=== PATIENT | female | born 1940 | race Caucasian/White ===

== ENCOUNTER 2017-01-07 08:57 | Outpatient (CLI) | payer MEDICARE, BC ==
[2017-01-07 09:41] LABS: Hemoglobin A1c 5.1 % (4.0-6.0)
[2017-01-07 09:46] LABS: Anion Gap 17 mmol/L (10-20); BUN (Urea Nitrogen) 21 mg/dL (9.8-20.1); Calc. Creatinine Clearance 0 mL/min (70-130); Carbon Dioxide 28 mmol/L (23-31); Chloride 98 mmol/L (98-107); Estimated GFR-MDRD 66; Potassium 4.2 mmol/L (3.5-5.1); Sodium 139 mmol/L (136-145)
[2017-01-07 09:47] LABS: ALT (SGPT) 21 U/L (0-55); AST (SGOT) 19 U/L (5-34); Albumin 4.7 g/dL (3.4-4.8); Alkaline Phosphatase 31 U/L (40-150); Bilirubin, Total 0.4 mg/dL (0.2-1.2); Cardiac Risk 3.6 (Less than 4.5); Cholesterol 144 mg/dL (< 200 Desired); Globulin 2.4 g/dL (2.4-3.5); Glucose 95 mg/dL (83-110); HDL Cholesterol 40 mg/dL (>60 Neg Risk); LDL Cholesterol, Calculated 62 mg/dL; Protein, Total 7.1 g/dL (5.8-8.1); Triglycerides 211 mg/dL (Less than 150)
[2017-01-08 15:39] LABS: Creatinine, Urine 146.94 mg/dL (47-110); Microalbumin Urine 9.5 mg/dL (0.5-50.0); Microalbumin/Creat Ratio 64.7 mg/g (Less than 30)
== END 2017-01-07 08:58 | disposition home or self-care (01) ==
LOC: MADLABBHPM 08:57
PROVIDERS: ATTEND Family Medicine
DX: E11.65 Type 2 diabetes mellitus with hyperglycemia (principal)
CPT/HCPCS: 36415; 80053; 80061; 82043; 83036

== ENCOUNTER 2017-01-20 16:06 | Outpatient (CLI) | payer MEDICARE, BC | END 2017-01-20 16:07 | disposition home or self-care (01) | LOC: MADLAB 16:06 | DX: M54.16 Radiculopathy, lumbar region (principal); M54.9 Dorsalgia, unspecified; M43.8X9 Other specified deforming dorsopathies, site unspecified; B99.9 Unspecified infectious disease; Z98.1 Arthrodesis status | CPT/HCPCS: 36415; 85652; 86140 ==

== ENCOUNTER 2017-03-06 17:29 | Outpatient (CLI) | payer MEDICARE, BC | END 2017-03-06 17:30 | disposition home or self-care (01) | LOC: MADLABBHPM 17:29 | PROVIDERS: ATTEND Family Medicine | DX: N39.0 Urinary tract infection, site not specified (principal) | CPT/HCPCS: 87077; 87086; 87186 ==

== ENCOUNTER 2017-04-14 11:27 | Outpatient (CLI) | payer MEDICARE, BC ==
[2017-04-14 12:25] LABS: ALT (SGPT) 20 U/L (8-55); AST (SGOT) 21 U/L (5-34); Albumin 4.3 g/dL (3.4-4.8); Alkaline Phosphatase 35 U/L (40-150); Anion Gap 19 mmol/L (10-20); BUN (Urea Nitrogen) 25 mg/dL (9.8-20.1); Bilirubin, Total 0.3 mg/dL (0.2-1.2); Calc. Creatinine Clearance 0 mL/min (70-130); Calcium 9.9 mg/dL (7.8-10.44); Carbon Dioxide 22 mmol/L (23-31); Chloride 99 mmol/L (98-107); Estimated GFR-MDRD 46; Globulin 2.5 g/dL (2.4-3.5); Glucose 126 mg/dL (83-110); Hemoglobin A1c 5.7 % (4.0-6.0); Protein, Total 6.8 g/dL (6.0-8.3); Sodium 135 mmol/L (136-145)
[2017-04-14 12:41] LABS: Free T4 (Free Thyroxine) 1.12 ng/dL (0.70-1.48); Thyroid Stimulating Hormone 2.64 uIU/mL (0.35-4.94)
[2017-04-14 17:33] LABS: Creatinine, Urine 77.64 mg/dL (47-110); Microalbumin Urine 9.5 mg/dL (0.5-50.0); Microalbumin/Creat Ratio 122.4 mg/g (Less than 30)
== END 2017-04-14 11:28 | disposition home or self-care (01) ==
LOC: MADLABBHPM 11:27
PROVIDERS: ATTEND Family Medicine
DX: E11.65 Type 2 diabetes mellitus with hyperglycemia (principal); R60.0 Localized edema
CPT/HCPCS: 36415; 80053; 82043; 83036; 84439; 84443

== ENCOUNTER 2017-04-19 11:39 | Outpatient (CLI) | payer MEDICARE, BC ==
[2017-04-21 17:39] LABS: Microalbumin-Urine 23.5 mg/dL; Microalbumin/24 Hr 15.28 mg/24 hr (Less than 30)
== END 2017-04-19 11:40 | disposition home or self-care (01) ==
LOC: MADLABBHPM 11:39
PROVIDERS: ATTEND Family Medicine
DX: E11.65 Type 2 diabetes mellitus with hyperglycemia (principal); R60.0 Localized edema; R80.9 Proteinuria, unspecified
CPT/HCPCS: 82043

== ENCOUNTER 2018-06-27 22:42 | Emergency (ER) | payer MEDICARE, BC ==
[~2018-06-27 22:42] MED LIST: Sodium Chloride 0.9% 1,000 ML BAG ONE
--- NOTE | 2018-06-27 23:20 | RAD ---
AP VIEW CHEST: 06/27/18 HISTORY: Weakness and fall. AP view chest is obtained on 06/27/18. COMPARISON: Comparison made to a previous exam from 02/05/07. AP view chest demonstrates a right shoulder arthroplasty. EKG leads seen over the chest. A moderate degree of pulmonary vascular congestion is seen. No evidence of effusions, pneumonia or pn eumothorax seen. IMPRESSION: 1. Pulmonary vascular congestion. 2. Cardiomegaly. 3. No other acute intrathoracic abnormality seen. POS: [facility]
[2018-06-27 23:49] LABS: #Basophils 0.1 thou/uL (0.0-0.2); #Eosinphils 0.3 thou/uL (0.0-0.7); #Lymphocytes 1.7 thou/uL (1.20-3.40); #Monocytes 0.5 thou/uL (0.11-0.59); #Neutrophils 3.5 thou/uL (1.40-6.50); %Basophils 1.2 % (0.0-1.0); %Eosinophils 4.6 % (0.0-10.0); %Lymphocytes 28.1 % (21.0-51.0); %Monocytes 8.2 % (0.0-10.0); %Neutrophils 57.9 % (42.0-75.0); Hemoglobin 11.4 g/dL (12.0-16.0); Mean Corpuscular HGB CONC 32.7 g/dL (32.0-36.0); Mean Corpuscular Hemoglobin 28.7 pg (27.0-31.0); Mean Corpuscular Volume 87.8 fL (78.0-98.0); Mean Platelet Volume 9.8 fL (7.4-10.4); Platelet Count 145 thou/uL (130-400); RBC Distribution Width 12.9 % (11.5-14.5); Red Blood Cell (RBC) Count 3.98 mill/uL (4.20-5.40); White Blood Cell (WBC) Count 6.1 thou/uL (4.8-10.8)
[2018-06-27 23:55] LABS: ALT (SGPT) 12 U/L (8-55); AST (SGOT) 16 U/L (5-34); Albumin 4.2 g/dL (3.4-4.8); Alkaline Phosphatase 46 U/L (40-150); Anion Gap 16 mmol/L (10-20); BUN (Urea Nitrogen) 32 mg/dL (9.8-20.1); Bilirubin, Total 0.3 mg/dL (0.2-1.2); CK (CPK) 96 U/L (29-168); Calc. Creatinine Clearance 0 mL/min (70-130); Calcium 9.6 mg/dL (7.8-10.44); Carbon Dioxide 28 mmol/L (23-31); Chloride 97 mmol/L (98-107); Estimated GFR-MDRD 35; Globulin 2.4 g/dL (2.4-3.5); Glucose 142 mg/dL (83-110); Potassium 4.6 mmol/L (3.5-5.1); Protein, Total 6.6 g/dL (6.0-8.3); Sodium 136 mmol/L (136-145)
[2018-06-28 00:03] LABS: CKMB 1.5 ng/mL (0-6.6); Troponin I Less than 0.010 ng/mL (< 0.028)
== END 2018-06-28 01:33 | disposition short-term general hospital (02) ==
LOC: MADERS 22:42
DX: R00.1 Bradycardia, unspecified (principal); R41.82 Altered mental status, unspecified; E11.9 Type 2 diabetes mellitus without complications; E78.5 Hyperlipidemia, unspecified; I10 Essential (primary) hypertension; K21.9 Gastro-esophageal reflux disease without esophagitis; M48.00 Spinal stenosis, site unspecified
CPT/HCPCS: 36415; 71045; 80053; 82550; 82553; 83880; 84443; 84484; 85025; 93005; 96360; J7050

== ENCOUNTER 2018-07-05 11:56 | Emergency (ER) | payer MEDICARE, BC | END 2018-07-05 13:09 | disposition home or self-care (01) | LOC: MADERS 11:56 | DX: E86.0 Dehydration (principal); E78.5 Hyperlipidemia, unspecified; I10 Essential (primary) hypertension; K21.9 Gastro-esophageal reflux disease without esophagitis; E11.9 Type 2 diabetes mellitus without complications; G47.00 Insomnia, unspecified; Z79.899 Other long term (current) drug therapy; Z79.82 Long term (current) use of aspirin | CPT/HCPCS: 99283 ==

== ENCOUNTER 2018-11-03 12:34 | Emergency (ER) | payer MEDICARE, BC ==
[2018-11-03 13:10] LABS: Bilirubin Small (Negative); Blood, Urine Moderate (Negative); Clarity Cloudy (Clear); Glucose, Urine (Dipstick) 100 mg/dL (Negative); Leukocyte Large (Negative); Nitrite Positive (Negative); Protein, Urine (Dipstick) > or equal to 300 mg/dL (Neg-Trace)
[2018-11-03 13:17] LABS: RBC/HPF 0-3 HPF (0-3)
[2018-11-03 13:18] LABS: Bacteria/HPF 3+ HPF (None Seen); Hyaline Casts/LPF 0-3 HYALINE CAST LPF (0-3 Hyaline)
== END 2018-11-03 13:35 | disposition home or self-care (01) ==
LOC: MADERS 12:34
DX: N39.0 Urinary tract infection, site not specified (principal); E78.5 Hyperlipidemia, unspecified; I10 Essential (primary) hypertension; K21.9 Gastro-esophageal reflux disease without esophagitis; E11.9 Type 2 diabetes mellitus without complications; G47.00 Insomnia, unspecified; Z79.899 Other long term (current) drug therapy; Z79.84 Long term (current) use of oral hypoglycemic drugs; Z79.82 Long term (current) use of aspirin
CPT/HCPCS: 81001; 87077; 87086; 87186; 99283

== ENCOUNTER 2021-02-16 17:19 | Outpatient (CLI) | payer MEDICARE, BC | END 2021-02-16 17:20 | disposition home or self-care (01) | LOC: MADRAD 17:19 | PROVIDERS: ATTEND Family Medicine | DX: R06.09 Other forms of dyspnea (principal); M47.814 Spondylosis without myelopathy or radiculopathy, thoracic region; M48.04 Spinal stenosis, thoracic region; Q25.46 Tortuous aortic arch; Z98.1 Arthrodesis status; Z96.611 Presence of right artificial shoulder joint | CPT/HCPCS: 71046 ==

== ENCOUNTER 2021-06-29 23:50 | Emergency (ER) | payer MEDICARE, BC ==
[2021-06-30] MEDS ORDERED: Fentanyl 100 MCG/2 ML VIAL ONE (01:01)
[2021-06-30 02:04] LABS: #Basophils 0.1 thou/uL (0.0-0.2); #Eosinphils 0.2 thou/uL (0.0-0.7); #Lymphocytes 1.1 thou/uL (1.20-3.40); #Monocytes 0.4 thou/uL (0.11-0.59); #Neutrophils 7.2 thou/uL (1.40-6.50); %Eosinophils 2.5 % (0.0-10.0); %Monocytes 4.3 % (0.0-10.0); %Neutrophils 80.3 % (42.0-75.0); Hemoglobin 12.7 g/dL (12.0-16.0); Mean Corpuscular HGB CONC 31.4 g/dL (32.0-36.0); Mean Corpuscular Hemoglobin 29.6 pg (27.0-31.0); Mean Corpuscular Volume 94.3 fL (78.0-98.0); Mean Platelet Volume 8.1 fL (7.4-10.4); Platelet Count 147 thou/uL (130-400); RBC Distribution Width 12.5 % (11.5-14.5); Red Blood Cell (RBC) Count 4.29 mill/uL (4.20-5.40); White Blood Cell (WBC) Count 8.9 thou/uL (4.8-10.8)
[2021-06-30 02:10] LABS: Bilirubin Negative (Negative); Blood, Urine Trace (Negative); Clarity Clear (Clear); Glucose, Urine (Dipstick) 500 mg/dL (Negative); Ketone, Urine Negative (Negative); Leukocyte Negative (Negative); Nitrite Negative (Negative); Protein, Urine (Dipstick) Negative (Neg-Trace); Specific Gravity, Urine 1.025 (1.005-1.030); Urobilinogen 0.2 mg/dL (Less than 2)
[2021-06-30 02:17] LABS: Bacteria/HPF None Seen HPF (None Seen); RBC/HPF 0-3 HPF (0-3); Renal Epithelial 0-3 HPF (None Seen); Squamous Epithelial 0-3 HPF (0-3); Transitional Epithelial 0-3 HPF (None Seen)
[2021-06-30 02:20] LABS: ALT (SGPT) 18 U/L (8-55); AST (SGOT) 16 U/L (5-34); Alkaline Phosphatase 70 U/L (40-110); Anion Gap 13 mmol/L (10-20); BUN (Urea Nitrogen) 27 mg/dL (9.8-20.1); Bilirubin, Total 0.4 mg/dL (0.2-1.2); Calc. Creatinine Clearance 0 mL/min (70-130); Calcium 9.2 mg/dL (7.8-10.44); Carbon Dioxide 28 mmol/L (23-31); Chloride 99 mmol/L (98-107); Globulin 2.1 g/dL (2.4-3.5); Glucose 121 mg/dL (83-110); Magnesium 1.6 mg/dL (1.6-2.6); Potassium 4.9 mmol/L (3.5-5.1); Protein, Total 6.1 g/dL (5.8-8.1); Sodium 135 mmol/L (136-145)
== END 2021-06-30 05:35 | disposition home or self-care (01) ==
LOC: MADERS 23:50
DX: R53.1 Weakness (principal); E78.5 Hyperlipidemia, unspecified; I10 Essential (primary) hypertension; K21.9 Gastro-esophageal reflux disease without esophagitis; M48.00 Spinal stenosis, site unspecified; E78.00 Pure hypercholesterolemia, unspecified; G93.41 Metabolic encephalopathy; E11.9 Type 2 diabetes mellitus without complications; K76.0 Fatty (change of) liver, not elsewhere classified; E83.52 Hypercalcemia; G47.00 Insomnia, unspecified; Z85.038 Personal history of other malignant neoplasm of large intestine; Z79.82 Long term (current) use of aspirin; Z79.899 Other long term (current) drug therapy
CPT/HCPCS: 71045; 80053; 81003; 81015; 83735; 84484; 85025; 93005; 96372; J3010

== ENCOUNTER 2021-08-07 03:02 | Emergency (ER) | payer MEDICARE, BC ==
[2021-08-07 04:05] LABS: Hemoglobin 7.4 g/dL (12.0-16.0); Mean Corpuscular HGB CONC 33.1 g/dL (32.0-36.0); Mean Corpuscular Hemoglobin 30.1 pg (27.0-31.0); Mean Corpuscular Volume 91.1 fL (78.0-98.0); Mean Platelet Volume 10.6 fL (7.4-10.4); Platelet Count 42 thou/uL (130-400); RBC Distribution Width 13.6 % (11.5-14.5); Red Blood Cell (RBC) Count 2.44 mill/uL (4.20-5.40)
[2021-08-07] MEDS ORDERED: Lactated Ringer's 1,000 ML ONE (04:15)
[2021-08-07] MEDS ORDERED: Sodium Chloride 0.9% 100 ML ONE (04:15)
[2021-08-07] MEDS ORDERED: Cefepime 2 GM VIAL ONE (04:15)
[2021-08-07] MEDS ORDERED: Sodium Chloride 0.9% 250 ML 500 ML ONE (04:18)
[2021-08-07 04:20] LABS: ALT (SGPT) 23 U/L (8-55); AST (SGOT) 16 U/L (5-34); Albumin 2.8 g/dL (3.4-4.8); Alkaline Phosphatase 54 U/L (40-110); Anion Gap 20 mmol/L (10-20); BUN (Urea Nitrogen) 57 mg/dL (9.8-20.1); Bilirubin, Total 0.5 mg/dL (0.2-1.2); CK (CPK) 253 U/L (29-168); Calc. Creatinine Clearance 0 mL/min (70-130); Calcium 7.4 mg/dL (7.8-10.44); Carbon Dioxide 13 mmol/L (23-31); Chloride 100 mmol/L (98-107); Globulin 1.9 g/dL (2.4-3.5); Glucose 173 mg/dL (83-110); Lipase 9 U/L (8-78); Magnesium 1.1 mg/dL (1.6-2.6); Potassium 3.5 mmol/L (3.5-5.1); Protein, Total 4.7 g/dL (5.8-8.1); Sodium 129 mmol/L (136-145)
[2021-08-07 04:30] LABS: Band 22 % (5-11); Bite Cells SLIGHT = 2-5 cells (100X) (0-1/hpf); Eosinophils 4 % (0-10); Lymphocytes 8 % (21-51); MDiff Complete? YES; Macrocytosis SLIGHT = 6-15 cells (100X) (0-5/hpf); Monocytes 42 % (0-10); Neutrophil 24 % (42-75); Platelet Morphology Comment Appears Decreased; Reflex for Review?? NO
[2021-08-07 04:33] LABS: White Blood Cell (WBC) Count 0.5 thou/uL (4.8-10.8)
[2021-08-07 04:37] LABS: SARS-CoV-2 NAA Rapid Test Not Detected (NotDetected)
[2021-08-07] MEDS ORDERED: Acetaminophen 500 MG TAB ONE (04:43)
[2021-08-07] MEDS ORDERED: Calcium Gluc 4.6 MEQ/10 ML (100 MG/ML) ONE ×2 (04:50→04:51)
[2021-08-07] MEDS ORDERED: Magnesium 2 GM/50 ML BAG (IN WATER) ONE (04:50)
[2021-08-07 05:43] LABS: Bilirubin Negative (Negative); Blood, Urine Moderate (Negative); Clarity Cloudy (Clear); Glucose, Urine (Dipstick) Negative (Negative); Ketone, Urine Negative (Negative); Leukocyte Negative (Negative); Nitrite Negative (Negative); Protein, Urine (Dipstick) 100 mg/dL (Neg-Trace); Urobilinogen 0.2 mg/dL (Less than 2); pH, Urine 5.5 (5.0-9.0)
[2021-08-07 05:55] LABS: Bacteria/HPF None Seen HPF (None Seen)
[2021-08-07 05:59] LABS: Crystals/HPF 2+ AMORPH URATES HPF (Negative); Renal Epithelial 0-3 HPF (None Seen)
== END 2021-08-07 06:35 | disposition short-term general hospital (02) ==
LOC: MADERS 03:02
DX: D70.9 Neutropenia, unspecified (principal); R50.81 Fever presenting with conditions classified elsewhere; N17.9 Acute kidney failure, unspecified; L03.314 Cellulitis of groin; E83.51 Hypocalcemia; E83.42 Hypomagnesemia; E87.2 Acidosis; R52 Pain, unspecified; E78.5 Hyperlipidemia, unspecified; I10 Essential (primary) hypertension; K21.9 Gastro-esophageal reflux disease without esophagitis; E78.00 Pure hypercholesterolemia, unspecified; Z79.82 Long term (current) use of aspirin; Z79.84 Long term (current) use of oral hypoglycemic drugs; Z79.899 Other long term (current) drug therapy
CPT/HCPCS: 0240U; 51701; 71045; 74176; 80053; 81003; 81015; 82550; 83605; 83690; 83735; 84443; 85025; 87040; 87086; 93005; 96365; 96367; 96368; J0610; J0692; J3370; J3475; J3490; J7050; J7120

== ENCOUNTER 2021-08-13 15:20 | Inpatient (IN) | payer MEDICARE, BC ==
[2021-08-13] MEDS ORDERED: DEXTROMETHORPHAN POLISTIREX PO PRN (16:11)
[2021-08-13] MEDS ORDERED: Senokot S 8.6-50 MG TAB PO PRN (16:11)
[2021-08-13] MEDS ORDERED: HYDROmorphone 2 MG TAB PO PRN (16:11)
[2021-08-13] MEDS ORDERED: [UNRECOGNIZED DRUG - OTHER] PO PRN (16:11)
[2021-08-13] MEDS ORDERED: HYDROcodone/Acetaminophen 10/325 mg Tablet PO PRN (16:11)
[2021-08-13] MEDS ORDERED: Bisacodyl 5 MG TAB PO PRN (16:11)
[2021-08-13 16:16] VITALS: BMI 32.5
[2021-08-13] MEDS ORDERED: FLU VACC QS2021-22(65YR UP)/PF 240 MCG/0.7 ML SYRINGE IM ONE (16:30)
[2021-08-13] MEDS: HYDROcodone/Acetaminophen 10/325 mg Tablet PO PRN (17:50)
[2021-08-13] MEDS: Acetaminophen 325 MG TAB PO PRN (20:04)
[2021-08-13] MEDS: Loperamide HCl 2 MG CAP PO PRN (20:04)
[2021-08-13] MEDS ORDERED: Amoxicillin/Potassium Clav 250 mg/5 ml Oral Suspension PO SCH (21:00)
[2021-08-13] MEDS ORDERED: METHENAMINE HIPPURATE 1 GM PO SCH (21:00)
[2021-08-13] MEDS: Amiodarone 200 MG TAB PO SCH (21:17)
[2021-08-13] MEDS: Atorvastatin Calcium 10 MG TAB PO SCH (21:18)
[2021-08-13] MEDS: Doxycycline 100 MG CAP PO SCH (21:18)
[2021-08-13] MEDS: Benzonatate 100 MG CAP PO SCH (21:18)
[2021-08-13] MEDS: Lisinopril 20 MG TAB PO SCH (21:20)
[2021-08-13] MEDS: Amoxicillin/Potassium Clav 500 MG TAB PO SCH (21:21)
[2021-08-13] MEDS: traMADol HCl 50 MG TAB PO SCH (21:22)
[2021-08-13] MEDS: Gabapentin 300 MG CAP PO SCH (21:22)
[2021-08-13] MEDS: Simethicone Chewable 80 MG TAB PO SCH (21:22)
[2021-08-13] MEDS: Mag-Al Plus 1200 MG/1200 MG/120 MG/30 ML UDCUP SSW PRN (22:10)
[2021-08-13] MEDS ORDERED: Silver Sulfadiazine 50 GM TUBE ONE (22:38)
[2021-08-13] MEDS: Silver Sulfadiazine 50 GM TUBE TOP SCH (22:47)
[2021-08-14] MEDS: Acetaminophen 325 MG TAB PO PRN ×2 (01:01→12:11)
[2021-08-14] MEDS: ALPRAZolam 0.25 MG TAB PO PRN (01:06)
[2021-08-14 01:17] LABS: Bilirubin Negative (Negative); Blood, Urine Large (Negative); Clarity Turbid (Clear); Glucose, Urine (Dipstick) Negative (Negative); Ketone, Urine Negative (Negative); Leukocyte Small (Negative); Nitrite Negative (Negative); Protein, Urine (Dipstick) 100 mg/dL (Neg-Trace); Specific Gravity, Urine 1.015 (1.005-1.030); Urobilinogen 0.2 mg/dL (Less than 2)
[2021-08-14 01:18] LABS: Bacteria/HPF 1+ HPF (None Seen); RBC/HPF Greater than 50 HPF (0-3); WBC/HPF 21-50 HPF (0-3)
[2021-08-14] MEDS: HYDROcodone/Acetaminophen 10/325 mg Tablet PO PRN ×3 (01:57→14:50)
[2021-08-14 05:24] LABS: Hemoglobin 6.9 g/dL (12.0-16.0); Mean Corpuscular HGB CONC 34.8 g/dL (32.0-36.0); Mean Corpuscular Hemoglobin 31.6 pg (27.0-31.0); Mean Corpuscular Volume 90.9 fL (78.0-98.0); Mean Platelet Volume 13.1 fL (7.4-10.4); Platelet Count 35 thou/uL (130-400); RBC Distribution Width 13.5 % (11.5-14.5); White Blood Cell (WBC) Count 1.8 thou/uL (4.8-10.8)
[2021-08-14] MEDS: Gabapentin 300 MG CAP PO SCH ×3 (05:28→21:45)
[2021-08-14] MEDS: traMADol HCl 50 MG TAB PO SCH ×3 (05:28→21:45)
[2021-08-14] MEDS: Benzonatate 100 MG CAP PO SCH ×3 (08:10→20:44)
[2021-08-14] MEDS: Doxycycline 100 MG CAP PO SCH ×2 (08:10→21:45)
[2021-08-14] MEDS: Amoxicillin/Potassium Clav 500 MG TAB PO SCH ×3 (08:10→20:39)
[2021-08-14] MEDS: Saccharomyces boulardii 250 MG CAP PO SCH (08:11)
[2021-08-14] MEDS: Loperamide HCl 2 MG CAP PO PRN (08:11)
[2021-08-14] MEDS: Silver Sulfadiazine 50 GM TUBE TOP SCH ×2 (08:11→21:44)
[2021-08-14] MEDS: Amiodarone 200 MG TAB PO SCH ×2 (08:11→20:44)
[2021-08-14] MEDS: Lisinopril 20 MG TAB PO SCH ×2 (08:11→20:43)
[2021-08-14] MEDS ORDERED: HYDROcodone/Acetaminophen 10/325 mg Tablet PO PRN (14:21)
[2021-08-14] MEDS: Simethicone Chewable 80 MG TAB PO SCH (20:37)
[2021-08-14] MEDS: Ferrous Gluconate 324 MG TAB PO SCH (20:43)
[2021-08-14] MEDS: Atorvastatin Calcium 10 MG TAB PO SCH (21:45)
[2021-08-14] MEDS: Melatonin 3 MG TAB PO PRN (21:46)
[2021-08-14] MEDS: Furosemide 20 MG TAB PO PRN (21:48)
[2021-08-15] MEDS: Mag-Al Plus 1200 MG/1200 MG/120 MG/30 ML UDCUP SSW PRN (01:33)
[2021-08-15] MEDS: Gabapentin 300 MG CAP PO SCH ×3 (05:29→21:36)
[2021-08-15] MEDS: traMADol HCl 50 MG TAB PO SCH ×3 (05:30→21:36)
[2021-08-15 05:41] LABS: #Lymphocytes 0.3 thou/uL (1.20-3.40); #Monocytes 0.2 thou/uL (0.11-0.59); #Neutrophils 1.5 thou/uL (1.40-6.50); %Basophils 1.5 % (0.0-1.0); %Eosinophils 0.8 % (0.0-10.0); %Lymphocytes 12.6 % (21.0-51.0); %Monocytes 10.3 % (0.0-10.0); %Neutrophils 74.8 % (42.0-75.0); Hemoglobin 7.2 g/dL (12.0-16.0); MDiff Complete? YES; Macrocytosis SLIGHT = 6-15 cells (100X) (0-5/hpf); Mean Corpuscular HGB CONC 34.5 g/dL (32.0-36.0); Mean Corpuscular Hemoglobin 31.6 pg (27.0-31.0); Mean Corpuscular Volume 91.5 fL (78.0-98.0); Mean Platelet Volume 9.5 fL (7.4-10.4); Platelet Count 45 thou/uL (130-400); Platelet Morphology Comment Appears Decreased; RBC Distribution Width 13.7 % (11.5-14.5); Red Blood Cell (RBC) Count 2.28 mill/uL (4.20-5.40); White Blood Cell (WBC) Count 2.1 thou/uL (4.8-10.8)
[2021-08-15] MEDS: HYDROcodone/Acetaminophen 10/325 mg Tablet PO PRN ×2 (08:18→14:46)
[2021-08-15] MEDS: Amoxicillin/Potassium Clav 500 MG TAB PO SCH ×3 (08:19→20:26)
[2021-08-15] MEDS: Lisinopril 20 MG TAB PO SCH ×2 (08:19→20:35)
[2021-08-15] MEDS: Doxycycline 100 MG CAP PO SCH ×2 (08:20→20:25)
[2021-08-15] MEDS: Saccharomyces boulardii 250 MG CAP PO SCH (08:20)
[2021-08-15] MEDS: Amiodarone 200 MG TAB PO SCH ×2 (08:20→20:25)
[2021-08-15] MEDS: Silver Sulfadiazine 50 GM TUBE TOP SCH ×2 (08:20→21:00)
[2021-08-15] MEDS: Benzonatate 100 MG CAP PO SCH ×3 (08:20→20:25)
[2021-08-15] MEDS: Ferrous Gluconate 324 MG TAB PO SCH ×2 (08:21→20:26)
[2021-08-15 20:16] LABS: SARS-CoV-2 PCR by NAA Not Detected (NotDetected)
[2021-08-15] MEDS: Furosemide 20 MG TAB PO PRN (20:25)
[2021-08-15] MEDS: Simethicone Chewable 80 MG TAB PO SCH (20:25)
[2021-08-15] MEDS: Atorvastatin Calcium 10 MG TAB PO SCH (20:26)
[2021-08-16] MEDS: ALPRAZolam 0.25 MG TAB PO PRN (00:58)
[2021-08-16] MEDS: Melatonin 3 MG TAB PO PRN (00:58)
[2021-08-16] MEDS: traMADol HCl 50 MG TAB PO SCH ×3 (05:10→22:11)
[2021-08-16] MEDS: Gabapentin 300 MG CAP PO SCH ×3 (05:11→20:08)
[2021-08-16] MEDS: HYDROcodone/Acetaminophen 10/325 mg Tablet PO PRN (08:11)
[2021-08-16] MEDS: Amoxicillin/Potassium Clav 500 MG TAB PO SCH ×3 (08:12→20:13)
[2021-08-16] MEDS: Saccharomyces boulardii 250 MG CAP PO SCH (08:12)
[2021-08-16] MEDS: Amiodarone 200 MG TAB PO SCH ×2 (08:13→20:13)
[2021-08-16] MEDS: Silver Sulfadiazine 50 GM TUBE TOP SCH ×2 (08:13→20:25)
[2021-08-16] MEDS: Lisinopril 20 MG TAB PO SCH ×2 (08:13→20:12)
[2021-08-16] MEDS: Ferrous Gluconate 324 MG TAB PO SCH ×2 (08:13→18:03)
[2021-08-16] MEDS: Benzonatate 100 MG CAP PO SCH ×3 (08:13→20:13)
[2021-08-16] MEDS: Doxycycline 100 MG CAP PO SCH ×2 (08:13→20:11)
[2021-08-16] MEDS ORDERED: diphenhydrAMINE 25 MG CAP PO PRN (18:00)
[2021-08-16] MEDS ORDERED: Acetaminophen 325 MG TAB PO PRN (18:15)
[2021-08-16 19:21] LABS: Hemoglobin 7.2 g/dL (12.0-16.0)
[2021-08-16] MEDS ORDERED: Furosemide 20 MG TAB PO PRN (20:00)
[2021-08-16] MEDS: Simethicone Chewable 80 MG TAB PO SCH (20:11)
[2021-08-16] MEDS: Atorvastatin Calcium 10 MG TAB PO SCH (20:13)
[2021-08-17] MEDS: HYDROcodone/Acetaminophen 10/325 mg Tablet PO PRN (04:49)
[2021-08-17] MEDS: Gabapentin 300 MG CAP PO SCH ×3 (06:00→21:04)
[2021-08-17] MEDS: traMADol HCl 50 MG TAB PO SCH ×3 (06:02→21:05)
[2021-08-17 07:29] LABS: White Blood Cell (WBC) Count 2.3 thou/uL (4.8-10.8)
[2021-08-17 07:30] LABS: Mean Corpuscular HGB CONC 33.5 g/dL (32.0-36.0); Mean Corpuscular Hemoglobin 30.7 pg (27.0-31.0); Mean Corpuscular Volume 91.5 fL (78.0-98.0); Mean Platelet Volume 8.2 fL (7.4-10.4); Platelet Count 104 thou/uL (130-400); RBC Distribution Width 14.2 % (11.5-14.5); Red Blood Cell (RBC) Count 3.25 mill/uL (4.20-5.40)
[2021-08-17] MEDS: Amiodarone 200 MG TAB PO SCH ×2 (08:19→21:03)
[2021-08-17] MEDS: Lisinopril 20 MG TAB PO SCH ×2 (08:19→21:03)
[2021-08-17] MEDS: Benzonatate 100 MG CAP PO SCH ×3 (08:19→21:03)
[2021-08-17] MEDS: Saccharomyces boulardii 250 MG CAP PO SCH (08:19)
[2021-08-17] MEDS: Ferrous Gluconate 324 MG TAB PO SCH ×2 (08:20→17:04)
[2021-08-17] MEDS: Silver Sulfadiazine 50 GM TUBE TOP SCH ×2 (08:23→21:38)
[2021-08-17] MEDS: Loperamide HCl 2 MG CAP PO PRN (11:06)
[2021-08-17] MEDS: Simethicone Chewable 80 MG TAB PO SCH (21:02)
[2021-08-17] MEDS: Atorvastatin Calcium 10 MG TAB PO SCH (21:03)
[2021-08-17] MEDS: ALPRAZolam 0.25 MG TAB PO PRN (21:04)
[2021-08-17] MEDS: Melatonin 3 MG TAB PO PRN (21:04)
[2021-08-18] MEDS: traMADol HCl 50 MG TAB PO SCH ×3 (05:09→21:05)
[2021-08-18] MEDS: Gabapentin 300 MG CAP PO SCH ×3 (05:09→21:06)
[2021-08-18] MEDS: Ferrous Gluconate 324 MG TAB PO SCH ×2 (07:18→17:01)
[2021-08-18] MEDS: HYDROcodone/Acetaminophen 10/325 mg Tablet PO PRN (07:19)
[2021-08-18] MEDS: Saccharomyces boulardii 250 MG CAP PO SCH (08:23)
[2021-08-18] MEDS: Lisinopril 20 MG TAB PO SCH ×2 (08:23→20:41)
[2021-08-18] MEDS: Amiodarone 200 MG TAB PO SCH ×2 (08:23→20:41)
[2021-08-18] MEDS: Benzonatate 100 MG CAP PO SCH ×3 (08:23→20:41)
[2021-08-18] MEDS: Silver Sulfadiazine 50 GM TUBE TOP SCH ×2 (08:24→20:43)
[2021-08-18] MEDS: Atorvastatin Calcium 10 MG TAB PO SCH (20:41)
[2021-08-18] MEDS: ALPRAZolam 0.25 MG TAB PO PRN (20:42)
[2021-08-18] MEDS: Simethicone Chewable 80 MG TAB PO SCH (20:42)
[2021-08-18] MEDS: Melatonin 3 MG TAB PO PRN (20:43)
[2021-08-19] MEDS: traMADol HCl 50 MG TAB PO SCH ×3 (05:39→21:14)
[2021-08-19] MEDS: Gabapentin 300 MG CAP PO SCH ×3 (05:40→21:14)
[2021-08-19] MEDS: Saccharomyces boulardii 250 MG CAP PO SCH (08:24)
[2021-08-19] MEDS: Ferrous Gluconate 324 MG TAB PO SCH ×2 (08:24→17:10)
[2021-08-19] MEDS: Lisinopril 20 MG TAB PO SCH ×2 (08:24→21:13)
[2021-08-19] MEDS: Amiodarone 200 MG TAB PO SCH ×2 (08:24→21:11)
[2021-08-19] MEDS: Benzonatate 100 MG CAP PO SCH ×3 (08:25→21:11)
[2021-08-19] MEDS: Silver Sulfadiazine 50 GM TUBE TOP SCH ×2 (08:25→21:14)
[2021-08-19] MEDS: HYDROcodone/Acetaminophen 10/325 mg Tablet PO PRN (09:43)
[2021-08-19] MEDS: Atorvastatin Calcium 10 MG TAB PO SCH (21:11)
[2021-08-19] MEDS: Simethicone Chewable 80 MG TAB PO SCH (21:14)
[2021-08-20] MEDS: Gabapentin 300 MG CAP PO SCH ×3 (06:08→20:57)
[2021-08-20] MEDS: traMADol HCl 50 MG TAB PO SCH ×3 (06:09→20:57)
[2021-08-20] MEDS: Lisinopril 20 MG TAB PO SCH ×2 (08:23→20:56)
[2021-08-20] MEDS: Amiodarone 200 MG TAB PO SCH ×2 (08:23→20:55)
[2021-08-20] MEDS: Benzonatate 100 MG CAP PO SCH ×3 (08:23→20:55)
[2021-08-20] MEDS: Ferrous Gluconate 324 MG TAB PO SCH ×2 (08:23→17:07)
[2021-08-20] MEDS: Saccharomyces boulardii 250 MG CAP PO SCH (08:23)
[2021-08-20] MEDS: Silver Sulfadiazine 50 GM TUBE TOP SCH ×2 (08:28→20:58)
[2021-08-20] MEDS: HYDROcodone/Acetaminophen 10/325 mg Tablet PO PRN (11:18)
[2021-08-20] MEDS: Atorvastatin Calcium 10 MG TAB PO SCH (20:55)
[2021-08-20] MEDS: Simethicone Chewable 80 MG TAB PO SCH (20:58)
[2021-08-21] MEDS: Gabapentin 300 MG CAP PO SCH ×3 (06:12→21:07)
[2021-08-21] MEDS: traMADol HCl 50 MG TAB PO SCH ×3 (06:13→21:06)
[2021-08-21] MEDS: Amiodarone 200 MG TAB PO SCH ×2 (08:15→20:12)
[2021-08-21] MEDS: Lisinopril 20 MG TAB PO SCH ×2 (08:16→20:11)
[2021-08-21] MEDS: Ferrous Gluconate 324 MG TAB PO SCH ×2 (08:16→17:44)
[2021-08-21] MEDS: Silver Sulfadiazine 50 GM TUBE TOP SCH ×2 (08:17→20:13)
[2021-08-21] MEDS: Benzonatate 100 MG CAP PO SCH ×3 (08:17→20:11)
[2021-08-21] MEDS: Saccharomyces boulardii 250 MG CAP PO SCH (08:17)
[2021-08-21] MEDS: METHENAMINE HIPPURATE 1 GM PO SCH ×2 (08:30→20:13)
[2021-08-21] MEDS: Simethicone Chewable 80 MG TAB PO SCH (20:10)
[2021-08-21] MEDS: Atorvastatin Calcium 10 MG TAB PO SCH (20:12)
[2021-08-22] MEDS: Melatonin 3 MG TAB PO PRN ×2 (00:45→21:21)
[2021-08-22] MEDS: HYDROcodone/Acetaminophen 10/325 mg Tablet PO PRN ×2 (00:45→17:16)
[2021-08-22] MEDS: traMADol HCl 50 MG TAB PO SCH ×2 (05:13→15:01)
[2021-08-22] MEDS: Gabapentin 300 MG CAP PO SCH ×3 (05:13→21:23)
[2021-08-22] MEDS: Saccharomyces boulardii 250 MG CAP PO SCH (08:46)
[2021-08-22] MEDS: Lisinopril 20 MG TAB PO SCH ×2 (08:46→21:23)
[2021-08-22] MEDS: Benzonatate 100 MG CAP PO SCH ×3 (08:46→21:23)
[2021-08-22] MEDS: Amiodarone 200 MG TAB PO SCH ×2 (08:46→21:25)
[2021-08-22] MEDS: Ferrous Gluconate 324 MG TAB PO SCH ×2 (08:46→17:14)
[2021-08-22] MEDS: METHENAMINE HIPPURATE 1 GM PO SCH ×2 (08:47→21:28)
[2021-08-22] MEDS: Silver Sulfadiazine 50 GM TUBE TOP SCH ×2 (08:48→21:23)
[2021-08-22 14:25] LABS: SARS-CoV-2 PCR by NAA Not Detected (NotDetected)
[2021-08-22] MEDS: Atorvastatin Calcium 10 MG TAB PO SCH (21:22)
[2021-08-22] MEDS: Simethicone Chewable 80 MG TAB PO SCH (21:23)
[2021-08-22] MEDS: ALPRAZolam 0.25 MG TAB PO PRN (21:28)
[2021-08-23] MEDS: Gabapentin 300 MG CAP PO SCH (05:40)
[2021-08-23] MEDS: Amiodarone 200 MG TAB PO SCH (08:25)
[2021-08-23] MEDS: Lisinopril 20 MG TAB PO SCH (08:26)
[2021-08-23] MEDS: Benzonatate 100 MG CAP PO SCH (08:26)
[2021-08-23] MEDS: Saccharomyces boulardii 250 MG CAP PO SCH (08:27)
[2021-08-23] MEDS: METHENAMINE HIPPURATE 1 GM PO SCH (08:27)
[2021-08-23] MEDS: Silver Sulfadiazine 50 GM TUBE TOP SCH (08:28)
[2021-08-23 08:30] VITALS: BP 146/66
[2021-08-23] MEDS: Ferrous Gluconate 324 MG TAB PO SCH (08:30)
[2021-08-23 09:06] VITALS: TEMP 97.4
[2021-08-23] MEDS: HYDROcodone/Acetaminophen 10/325 mg Tablet PO PRN (11:49)
[2021-08-23] MEDS ORDERED: Senokot S 8.6-50 MG TAB PO PRN (12:31)
== END 2021-08-23 14:30 | disposition home health service (06) | DRG 947 ==
LOC: MADMS 15:20
PROVIDERS: ADMIT Family Medicine; ATTEND Family Medicine
PROC: 30233N1 Transfusion of Nonautologous Red Blood Cells into Peripheral Vein, Percutaneous Approach (ICD-10-PCS; principal; 2021-08-16)
DX: R53.81 Other malaise (principal); D61.810 Antineoplastic chemotherapy induced pancytopenia; L03.314 Cellulitis of groin; C21.0 Malignant neoplasm of anus, unspecified; I10 Essential (primary) hypertension; E78.5 Hyperlipidemia, unspecified; Z20.822 Contact with and (suspected) exposure to COVID-19; I48.0 Paroxysmal atrial fibrillation; L98.419 Non-pressure chronic ulcer of buttock with unspecified severity; G89.4 Chronic pain syndrome; Z66 Do not resuscitate; T45.1X5A Adverse effect of antineoplastic and immunosuppressive drugs, initial encounter; R26.89 Other abnormalities of gait and mobility; E11.622 Type 2 diabetes mellitus with other skin ulcer; Z96.653 Presence of artificial knee joint, bilateral; Z88.8 Allergy status to other drugs, medicaments and biological substances; Z79.899 Other long term (current) drug therapy; Z97.8 Presence of other specified devices; Z88.5 Allergy status to narcotic agent
CPT/HCPCS: 36416; 36430; 81001; 85014; 85018; 85025; 85027; 86850; 86900; 86901; 87086; 90471; 90662; G0008; P9016; U0003; U0005

== ENCOUNTER 2021-09-15 18:08 | Emergency (ER) | payer OTHER, MEDICARE, BC ==
[2021-09-15 19:42] LABS: #Basophils 0.1 thou/uL (0.0-0.2); #Eosinphils 0.5 thou/uL (0.0-0.7); #Lymphocytes 0.7 thou/uL (1.20-3.40); #Monocytes 0.5 thou/uL (0.11-0.59); #Neutrophils 2.6 thou/uL (1.40-6.50); %Basophils 1.8 % (0.0-1.0); %Eosinophils 12.3 % (0.0-10.0); %Monocytes 11.4 % (0.0-10.0); %Neutrophils 59.5 % (42.0-75.0); Hemoglobin 10.7 g/dL (12.0-16.0); Mean Corpuscular HGB CONC 31.6 g/dL (32.0-36.0); Mean Corpuscular Hemoglobin 31.2 pg (27.0-31.0); Mean Corpuscular Volume 98.5 fL (78.0-98.0); Mean Platelet Volume 6.6 fL (7.4-10.4); Platelet Count 147 thou/uL (130-400); RBC Distribution Width 17.2 % (11.5-14.5); Red Blood Cell (RBC) Count 3.44 mill/uL (4.20-5.40); White Blood Cell (WBC) Count 4.4 thou/uL (4.8-10.8)
[2021-09-15 20:02] LABS: ALT (SGPT) 12 U/L (8-55); AST (SGOT) 15 U/L (5-34); Albumin 3.7 g/dL (3.4-4.8); Alkaline Phosphatase 56 U/L (40-110); Anion Gap 15 mmol/L (10-20); BUN (Urea Nitrogen) 18 mg/dL (9.8-20.1); Bilirubin, Total 0.3 mg/dL (0.2-1.2); Calc. Creatinine Clearance 0 mL/min (70-130); Calcium 8.5 mg/dL (7.8-10.44); Carbon Dioxide 26 mmol/L (23-31); Chloride 100 mmol/L (98-107); Globulin 2.7 g/dL (2.4-3.5); Glucose 74 mg/dL (83-110); Potassium 4.3 mmol/L (3.5-5.1); Protein, Total 6.4 g/dL (5.8-8.1); Sodium 137 mmol/L (136-145)
[2021-09-15] MEDS ORDERED: HYDROcodone/Acetaminophen 10/325 mg Tablet ONE (20:05)
== END 2021-09-15 21:23 | disposition home or self-care (01) ==
LOC: MADERS 18:08
DX: S16.1XXA Strain of muscle, fascia and tendon at neck level, initial encounter (principal); D64.9 Anemia, unspecified; M50.30 Other cervical disc degeneration, unspecified cervical region; E78.5 Hyperlipidemia, unspecified; I10 Essential (primary) hypertension; K21.9 Gastro-esophageal reflux disease without esophagitis; E11.9 Type 2 diabetes mellitus without complications; Z79.899 Other long term (current) drug therapy; Z79.82 Long term (current) use of aspirin; V43.62XA Car passenger injured in collision with other type car in traffic accident, initial encounter
CPT/HCPCS: 36415; 70450; 72125; 80053; 85025

== ENCOUNTER 2023-09-12 12:53 | Emergency (ER) | payer MEDICARE, BC ==
[2023-09-12] MEDS ORDERED: Lactated Ringer's 1,000 ML ONE (13:29)
[2023-09-12] MEDS ORDERED: Acetaminophen 325 MG TAB ONE (13:29)
[2023-09-12] MEDS ORDERED: Ondansetron PF 4 MG/2 ML Vial ONE (13:29)
[2023-09-12 13:59] LABS: ALT (SGPT) 15 U/L (8-55); AST (SGOT) 17 U/L (5-34); Albumin 3.6 g/dL (3.4-4.8); Alkaline Phosphatase 77 U/L (40-110); Anion Gap 16 mmol/L (10-20); BUN (Urea Nitrogen) 53 mg/dL (9.8-20.1); Bilirubin, Total 0.5 mg/dL (0.2-1.2); CK (CPK) 36 U/L (29-168); Calc. Creatinine Clearance 0 mL/min (70-130); Calcium 9.2 mg/dL (7.8-10.44); Carbon Dioxide 24 mmol/L (23-31); Chloride 96 mmol/L (98-107); Estimated GFR 34; Globulin 2.6 g/dL (2.4-3.5); Glucose 149 mg/dL (83-110); Lipase 17 U/L (8-78); Potassium 4.5 mmol/L (3.5-5.1); Protein, Total 6.2 g/dL (5.8-8.1); Sodium 131 mmol/L (136-145)
[2023-09-12 14:14] LABS: Band 3 % (5-11); Eosinophils 4 % (0-10); Hematocrit 36.8 % (36.0-47.0); Hemoglobin 11.8 g/dL (12.0-16.0); Lymphocytes 4 % (21-51); MDiff Complete? YES; Macrocytosis SLIGHT = 6-15 cells (100X) (0-5/hpf); Manual Diff?? YES; Mean Corpuscular HGB CONC 31.9 g/dL (32.0-36.0); Mean Corpuscular Hemoglobin 31.9 pg (27.0-31.0); Mean Corpuscular Volume 100.1 fl (78.0-98.0); Monocytes 3 % (0-10); Neutrophil 82 % (42-75); Platelet Count 105 10x3/uL (130-400); RBC Distribution Width 14.1 % (11.5-14.5); Reactive Lymphocytes 4 % (0-10); Red Blood Cell (RBC) Count 3.68 mill/uL (4.20-5.40)
[2023-09-12 14:15] LABS: Platelet Adequacy Comment Appears Decreased
[2023-09-12 14:24] LABS: Magnesium 1.6 mg/dL (1.6-2.6)
[2023-09-12 14:25] LABS: Bilirubin Negative (Negative); Blood, Urine Trace (Negative); Glucose, Urine (Dipstick) 500 mg/dL (Negative); Ketone, Urine Negative (Negative); Leukocyte Moderate (Negative); Nitrite Negative (Negative); Protein, Urine (Dipstick) Negative (Neg-Trace); Urobilinogen 0.2 mg/dL (Less than 2); pH, Urine 5.5 (5.0-9.0)
[2023-09-12 14:28] LABS: Clarity Hazy (Clear)
[2023-09-12 14:35] LABS: Bacteria/HPF Rare-Few HPF (None Seen); CAUTI Indications for Culture Dysuria,urgency,freq; RBC/HPF 0-3 HPF (0-3); Squamous Epithelial 0-3 HPF (0-3); WBC/HPF Greater Than 50 HPF (0-3)
[2023-09-12 14:36] LABS: Urine Culture Reflex Yes Yes; Yeast-Budding 2+ HPF (None Seen)
[2023-09-12] MEDS ORDERED: cefTRIAXone (ROCEPHIN) 2 GM VIAL ONE (15:01)
[2023-09-12] MEDS ORDERED: Sodium Chloride 0.9% 100 ML ONE (15:02)
[2023-09-12] MEDS ORDERED: Sodium Chloride 0.9% 1,000 ML ONE (15:02)
== END 2023-09-12 16:16 | disposition home or self-care (01) ==
LOC: MADERS 12:53
DX: N39.0 Urinary tract infection, site not specified (principal); I12.9 Hypertensive chronic kidney disease with stage 1 through stage 4 chronic kidney disease, or unspecified chronic kidney disease; N18.9 Chronic kidney disease, unspecified; E11.22 Type 2 diabetes mellitus with diabetic chronic kidney disease; B37.31 Acute candidiasis of vulva and vagina; K21.9 Gastro-esophageal reflux disease without esophagitis; E78.5 Hyperlipidemia, unspecified; Z79.82 Long term (current) use of aspirin; Z79.899 Other long term (current) drug therapy; Z20.822 Contact with and (suspected) exposure to COVID-19
CPT/HCPCS: 36415; 80053; 81001; 82550; 83690; 83735; 85025; 87086; 87635; 87804; 96361; 96365; 96375; J0696; J2405; J3490; J7050; J7120

== ENCOUNTER 2025-05-25 12:46 | Outpatient (CLI) | payer MEDICARE, BC ==
[2025-05-25 14:32] LABS: ALT (SGPT) 12 U/L (Less than 34); AST (SGOT) 18 U/L (11-34); Albumin 3.8 g/dL (3.1-4.5); Alkaline Phosphatase 98 U/L (40-110); Anion Gap 17 mmol/L (10-20); BUN (Urea Nitrogen) 33 mg/dL (9.8-20.1); Bilirubin, Total 0.2 mg/dL (0.3-1.2); Calc. Creatinine Clearance 0 mL/min (70-130); Calcium 8.8 mg/dL (7.8-10.44); Carbon Dioxide 27 mmol/L (23-31); Cardiac Risk 4.6 (Less than 4.5); Chloride 100 mmol/L (98-107); Cholesterol 129 mg/dl (< 200 Desired); Globulin 2.8 g/dL (2.4-3.5); Glucose 80 mg/dL (83-110); HDL Cholesterol 28 mg/dL (>60 Neg Risk); LDL Cholesterol, Calculated 52 mg/dL; Potassium 5.2 mmol/L (3.5-5.1); Sodium 139 mmol/L (136-145); Triglycerides 245 mg/dL (Less than 150)
== END 2025-05-25 12:47 | disposition home or self-care (01) ==
LOC: MADLAB 12:46
PROVIDERS: ATTEND Internal Medicine Cardiovascular Disease
DX: E78.2 Mixed hyperlipidemia (principal); I48.0 Paroxysmal atrial fibrillation
CPT/HCPCS: 36415; 80053; 80061